=== PATIENT | male | born 1960 | race Caucasian/White ===

== ENCOUNTER → 2021-07-17 09:40 | Outpatient (CLI) | payer OTHER, SELFPAY ==
[2021-07-17 12:23] LABS: COVID19 -Nasal RAPID Negative (Negative)
== END ==
PROVIDERS: PCP Family Medicine; Visit Provider Nurse Practitioner
DX: Z20.822 Contact with and (suspected) exposure to COVID-19 (principal); Z01.812 Encounter for preprocedural laboratory examination
CPT/HCPCS: 87635

== ENCOUNTER 2021-07-19 14:04 | Day surgery (SDC) | payer OTHER, SELFPAY ==
--- NOTE | 2021-07-19 12:24 | P.HP_ITS ---
History of Present Illness History of Present Illness Date Patient Seen: 07/19/21 Chief complaint: SCREENING COLONOSCOPY Narrative: 60 Years Old Male seen today for consideration of a screening colonoscopy. Two lifetime colonoscopies, first colonoscopy had a polyp, pathology not available at time of dictation. Last colonoscopy in 2016, normal. There have been no lower GI symptoms suggesting disease such as change in bowel habits, bleeding, abdominal pain or anemia. There's been no family history of colon cancer or colon polyps. Overall health issues have been stable, including no major cardiac events for at least 6 weeks. 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 Children: Josselyn (1984), Jeannine (1991) Occupation: Computer Programer 2-3 servings of alcohol daily Patient History Medical History (Updated 07/19/21 @ 14:33 by Mary Lou Kaur RN) Hyperlipemia Melanoma Thyroid nodule Meds Home Medications and Allergies Home Medications Medication Instructions Recorded Confirmed Type aspirin 81 mg tablet 81 mg PO DAILY 07/19/21 07/19/21 History atorvastatin 10 mg tablet 10 mg PO DAILY 07/19/21 07/19/21 History cetirizine 10 mg tablet (Zyrtec) 10 mg PO DAILY 07/19/21 07/19/21 History levothyroxine 137 mcg tablet 175 mcg PO DAILY 07/19/21 07/19/21 History Allergies Allergy/AdvReac Type Severity Reaction Status Date / Time Penicillins Allergy Unknown Rash Verified 07/19/21 14:34 Review of Systems Review of Systems Narrative: Please see HPI. Exam Narrative Exam Narrative: General: well developed, well nourished, in no acute distress, Head: normocephalic and atraumatic, Lungs: normal respiratory effort, clear bilaterally to auscultation, no wheezes rales or rhonchi. Heart: normal rate and regular rhythm, no murmurs, rubs, gallops, or clicks, Abdomen: abdomen soft and non-tender without masses, organomegaly, or abdominal wall hernias, bowel sounds positive. Skin: intact without suspicious lesions or rashes, Psych: alert and cooperative; normal mood and affect; normal attention span and concentration; cognition, remote and recent memory appear to be intact, Assessment & Plan Assessment & Plan narrative: 1. History of colon polyps 2. Screening for colon cancer Plan for colonoscopy. The nature and character of the procedure as well as anticipated results were discussed. The possibility of not completing the procedure was also discussed. Possible complications including aspiration pneumonia, bleeding, perforation and reaction to medications either for sedation or preparation and missed lesions were discussed. Questions were answered and proceeding to the colonoscopy was elected. Informed consent signed. I sincerely appreciate the referral allowing me to participate in this patient's care. Please contact me with any questions or concerns.
--- NOTE | 2021-07-19 12:25 | PM.OP.ENDO ---
Operative Date/Time/Diagnoses Date of procedure: 07/19/21 Procedure Notes SCOAP/Timeout: 3:29 p.m. Procedure in detail: ENDOSCOPIST: Marsha Newberry MD Sedation RN: Kyung Najera RN Sedation start time: 3:30 p.m. Sedation end time: 3:55 p.m. PROCEDURE: Colonoscopy INDICATIONS: 1. History of colon polyps 2. Screening for colon cancer MEDICATION: Levsin 0.125 mg sublingual, incremental doses of Versed and fentanyl until appropriate level sedation achieved. ASA CLASS: 2 CECAL WITHDRAWAL TIME: 11 minutes COMPLICATIONS: None. EXTENT OF PROCEDURE: Cecum. QUALITY OF PREP: Good with portions of liquid stool. PROCEDURE: Prior to insertion of the colonoscope, a digital rectal examination was accomplished with circumferential palpation of the distal rectal mucosa without significant findings being noted. The high-definition colonoscope was passed into the rectum in the usual fashion and advanced over to the cecum without difficulty. The ileocecal valve, appendiceal stoma, and medial wall all could be inspected and no abnormalities were seen. ASCENDING COLON: As the colonoscope was withdrawn, care was taken to expose and inspect the haustral folds and no abnormalities were seen. HEPATIC FLEXURE: Normal, no polyps, diverticula or other abnormalities. TRANSVERSE COLON: Normal, no polyps, diverticula or other abnormalities. DESCENDING COLON: Normal, no polyps, diverticula or other abnormalities. SIGMOID COLON: Normal, no polyps, diverticula or other abnormalities. RECTUM: Normal. J maneuver was produced. There was no significant perianal disease. The J maneuver was broken. The remainder of the rectum was inspected and there was no external hemorrhoid disease. The scope was withdrawn. IMPRESSION: 1. Normal colonoscopy PLAN: 1. Repeat colonoscopy in 5 years. The possibility of a missed lesion including a malignancy has been discussed with the patient previously. Potential alarm symptoms have been discussed and should be reported immediately.
[2021-07-19 14:37] VITALS: BP 132/87; PULSE 70; RESP 16; TEMP 36.4; O2SAT 100; BMI 24.4
[2021-07-19] MEDS: HYOSCYAMINE 0.125 MG TABLET PO (14:43)
[2021-07-19] MEDS: SODIUM CHLORIDE 0.9% 1,000 ML 84 ML IV (14:43)
[2021-07-19] MEDS: fentaNYL 250 MCG/5 ML INJ IV (15:58)
[2021-07-19] MEDS: MIDAZOLAM 5 MG/5 ML VIAL IV (15:58)
[2021-07-19 16:01] VITALS: BP 122/78; PULSE 76; RESP 14; TEMP 36.4; O2SAT 98
[2021-07-19 16:07] VITALS: BP 115/82; PULSE 74; RESP 16; O2SAT 99
[2021-07-19 16:28] VITALS: BP 114/74; PULSE 66; RESP 16; TEMP 36.8; O2SAT 97
== END 2021-07-19 16:45 | disposition home or self-care (01) ==
PROVIDERS: PCP Family Medicine; Referring Provider Student in an Organized Health Care Education/Training Program; Visit Provider Student in an Organized Health Care Education/Training Program
PROC: 0DJD8ZZ Inspection of Lower Intestinal Tract, Via Natural or Artificial Opening Endoscopic (ICD-10-PCS; CPT 45378; principal; 2021-07-19 15:15)
DX: Z12.11 Encounter for screening for malignant neoplasm of colon (principal); Z86.010 Personal history of colon polyps; E78.5 Hyperlipidemia, unspecified; E03.9 Hypothyroidism, unspecified
CPT/HCPCS: 45378; J2250; J3010

== ENCOUNTER → 2022-04-14 18:51 | Outpatient (ROUT) | payer OTHER, SELFPAY ==
[2022-04-14 19:36] LABS: Influenza A - CEPHEID Flu A NEGATIVE (NEGATIVE); Influenza B - CEPHEID Flu B NEGATIVE (NEGATIVE)
[2022-04-14 20:16] LABS: COVID-19 CEPHEID PCR (VTM/NP) Negative (Negative)
== END ==
PROVIDERS: PCP Family Medicine; Visit Provider Family Medicine
DX: Z20.822 Contact with and (suspected) exposure to COVID-19 (principal); R50.9 Fever, unspecified
CPT/HCPCS: 87502; U0003; U0005

== ENCOUNTER 2023-07-17 16:34 | Emergency (ER) | payer OTHER, SELFPAY ==
[2023-07-17 16:44] VITALS: BP 135/71; PULSE 68; RESP 16; TEMP 36.9; O2SAT 97; BMI 25.0
--- NOTE | 2023-07-17 16:59 | DI.CT.S_ITS ---
PROCEDURE: CT KIDNEY URETER BLADDER (KUB) INDICATIONS: r/o L sided kidney stone TECHNIQUE: Axial sections were acquired from the lung bases to the pubic symphysis. Coronal and sagittal reformats were performed. For radiation dose reduction, the following was used: automated exposure control, adjustment of mA and/or kV according to patient size. COMPARISON: None. FINDINGS: Image quality: Excellent. Lung bases: Unremarkable. Heart: No significant findings. URINARY: Right Kidney: No stones or hydronephrosis. Right Ureter: No hydroureter. Left Kidney: No stones or hydronephrosis. Left Ureter: No hydroureter. Bladder: Normal wall thickness. No stones. ABDOMEN: Liver: Subcentimeter right hepatic hypodensity is too small to characterize, probable cyst or hemangioma (2/13). Gallbladder: Unremarkable. Biliary ducts: Unremarkable. Pancreas: Unremarkable. Spleen: Unremarkable. Incidental anterior splenule. Adrenal Glands: Unremarkable. Stomach and Bowel: Stomach, small bowel loops, and colon are unremarkable. Peritoneum: No abnormal intraperitoneal fluid. No free air. Ventral Wall: No hernia. Abdominal Nodes: No enlarged retroperitoneal or mesenteric lymph nodes. Vessels: Aorta and inferior vena cava are normal in size. PELVIS: Pelvic Organs: Unremarkable. Pelvic Nodes: Unremarkable. Miscellaneous: No inguinal hernias are seen. Bones: Unremarkable. IMPRESSION: No nephrolithiasis or hydronephrosis. Incidental subcentimeter right hepatic hypodensity, too small to characterize, probable cyst versus hemangioma. Dictated by: Denisse Greer M.D. on 07/17/2023 at 17:28 Approved by: Denisse Greer M.D. on 07/17/2023 at 17:34
--- NOTE | 2023-07-17 18:18 | ED.ABDPAIN ---
HPI - Abdominal Pain General Chief Complaint: Abdominal Pain Stated Complaint: Side pain Time Seen by Provider: 07/17/23 18:17 Related Data Home Medications Medication Instructions Recorded Confirmed aspirin 81 mg tablet 81 mg PO DAILY 07/19/21 01/26/22 atorvastatin 10 mg tablet 10 mg PO DAILY 07/19/21 01/26/22 cetirizine 10 mg tablet (Zyrtec) 10 mg PO DAILY 07/19/21 01/26/22 levothyroxine 137 mcg tablet 175 mcg PO DAILY 07/19/21 01/26/22 Allergies Allergy/AdvReac Type Severity Reaction Status Date / Time Penicillins Allergy Unknown Rash Verified 07/19/21 14:34 Patient History Medical History (Updated 07/19/21 @ 14:33 by Mary Lou Kaur RN) Hyperlipemia Melanoma Thyroid nodule Social History household members: spouse Smoking Status: Never smoker alcohol intake: current Smoking Status: Never smoker alcohol intake frequency: 0-2 drinks per day Substance Use Type: does not use Exam Initial Vital Signs Initial Vital Signs: Vital Signs Temperature 98.5 F 07/17/23 16:44 Pulse Rate 68 07/17/23 16:44 Respiratory Rate 16 07/17/23 16:44 Blood Pressure 135/71 07/17/23 16:44 Pulse Oximetry 97 07/17/23 16:44 Oxygen Delivery Method Room Air 07/17/23 16:44 Course Orders Ordered: ED Orders 07/17/23 16:59 CT kidney ureter bladder (KUB) Stat Vital Signs Vital signs: Vital Signs - 8 hr 07/17/23 16:44 Temperature 98.5 F Pulse Rate 68 Respiratory Rate 16 Blood Pressure 135/71 Pulse Oximetry 97 Oxygen Delivery Method Room Air Discharge Plan Departure Prescriptions: No Action levothyroxine 137 mcg tablet 175 mcg PO DAILY cetirizine [Zyrtec] 10 mg Tablet 10 mg PO DAILY atorvastatin 10 mg tablet 10 mg PO DAILY aspirin 81 mg Tablet 81 mg PO DAILY Referrals: Edmundo Dill MD [Primary Care Provider] -
== END 2023-07-17 22:30 | disposition left against medical advice (07) ==
PROVIDERS: Emergency Provider Emergency Medicine; PCP Family Medicine
DX: R10.9 Unspecified abdominal pain (principal)
CPT/HCPCS: 74176; 99283

== ENCOUNTER → 2024-11-11 11:15 | Outpatient (ROUT) | payer MEDICARE, OTHER, SELFPAY ==
[2024-11-11 11:58] LABS: Influenza A - CEPHEID Flu A NEGATIVE (NEGATIVE); Influenza B - CEPHEID Flu B NEGATIVE (NEGATIVE); Respiratory Syncytial Virus Negative (Negative)
[2024-11-11 12:16] LABS: COVID-19 CEPHEID 4-PLEX PCR Negative (Negative)
== END ==
PROVIDERS: PCP Family Medicine; Visit Provider Family Medicine
DX: R68.83 Chills (without fever) (principal); R53.83 Other fatigue; R52 Pain, unspecified
CPT/HCPCS: 0241U

== ENCOUNTER → 2025-05-03 14:51 | Outpatient (CLI) | payer MEDICARE, OTHER, SELFPAY ==
--- NOTE | 2025-05-03 14:55 | DI.RAD.S_ITS ---
PROCEDURE: XR FOOT RT MIN 3V INDICATIONS: Hallux valgus (acquired), right foot TECHNIQUE: 3 views of the foot were acquired. COMPARISON: None. FINDINGS: Bones: Congenital 1st metatarsal foreshortening appreciated. Slight hallux valgus Joints: Moderate 1st MTP degenerative change appreciated is mild degenerative change in all DIP joints Soft tissues: No soft tissue abnormality. IMPRESSION: Degeneration Dictated by: Laci Hunter M.D. on 05/04/2025 at 12:57 Approved by: Laci Hunter M.D. on 05/04/2025 at 12:58
== END ==
PROVIDERS: PCP Family Medicine; Referring Provider Podiatrist; Visit Provider Podiatrist
DX: M21.611 Bunion of right foot (principal)
CPT/HCPCS: 73630

== ENCOUNTER → 2025-11-13 14:12 | Outpatient (CLI) | payer MEDICARE, OTHER, SELFPAY ==
--- NOTE | 2025-11-13 14:22 | DI.RAD.S_ITS ---
PROCEDURE: XR FOOT RT MIN 3V INDICATIONS: RT FOOT PAIN TECHNIQUE: 3 views of the foot were acquired. COMPARISON: [facility], CR, XR FOOT RT MIN 3V, 05/03/2025, 15:02. FINDINGS/IMPRESSION: Interval bunionectomy with screw fixation of the 1st metatarsal diaphysis. No hardware complication. Mild degenerative change of the 1st metatarsophalangeal joint. No acute fracture or dislocation. Small calcification about the 4th proximal proximal interphalangeal joint, unchanged, representing hydroxyapatite deposition disease. Dictated by: Radha Yoder M.D. on 11/13/2025 at 18:07 Approved by: Radha Yoder M.D. on 11/13/2025 at 18:09
== END ==
LOC: RAD 14:21
PROVIDERS: PCP Family Medicine; Referring Provider Family Medicine; Visit Provider Podiatrist
DX: M20.11 Hallux valgus (acquired), right foot (principal)
CPT/HCPCS: 73630